=== PATIENT | female | born 1960 | race Caucasian/White ===

== ENCOUNTER 2018-07-21 17:29 | Emergency (ER) | payer BC ==
--- NOTE | 2018-07-21 20:57 | ED ---
General Adult HPI - General Chief complaint: Neuro Symptoms/Deficit Stated complaint: Numbness in L side Source: patient Mode of arrival: ambulatory Limitations: no limitations - History of Present Illness Initial comments: Dictation was produced using [employer] dictation software. please excuse any grammatical, word or spelling errors. Chief Complaint: Female with complaints of a neuropathic symptoms. History of Present Illness:-year-old female who has been evaluated for neuropathy. Patient states she's had neuropathy symptoms for approximately 3 weeks. She states that this started at her bilateral feet. States that now she has neuropathy symptoms of her hands. Patient states that over the last 2- 3 days she's been having similar symptoms on her lip and mouth. Patient has been worked up by her primary care doctor or multiple lab tests were obtained. She was evaluated by physical medicine rehab who performed EMG with no apparent results. Patient was scheduled to see Dr. Walsh however she reports that she cannot wait that long. The ROS documented in this emergency department record has been reviewed and confirmed by me. Those systems with pertinent positive or negative responses have been documented in the HPI. All other systems are other negative and/or noncontributory. . - Related Data Home Medications Medication Instructions Recorded Confirmed Aspirin [Adult Low Dose Aspirin EC] 81 mg PO DAILY 07/21/18 07/21/18 Atenolol [Tenormin] 50 mg PO BID 07/21/18 07/21/18 Baclofen 10 mg PO DAILY PRN 07/21/18 07/21/18 Cyanocobalamin (Vitamin B-12) 1,000 mcg PO DAILY 07/21/18 07/21/18 [Vitamin B-12] Ezetimibe 10 mg PO HS 07/21/18 07/21/18 Ibuprofen/Diphenhydramine HCl 1 tab PO HS PRN 07/21/18 07/21/18 [Advil Pm Liqui-Gels] Losartan Potassium 100 mg PO HS 07/21/18 07/21/18 Sertraline [Zoloft] 50 mg PO HS 07/21/18 07/21/18 Xanax (Unknown Dose) 1 tab PO DAILY PRN 07/21/18 07/21/18 amLODIPine [Norvasc] 5 mg PO HS 07/21/18 07/21/18 Allergies Allergy/AdvReac Type Severity Reaction Status Date / Time egg Allergy Nausea & Verified 07/21/18 19:22 Vomiting & Diarrhea erythromycin base Allergy Unknown Verified 07/21/18 19:22 Milk Containing Products Allergy Nausea & Verified 07/21/18 19:22 [Dairy] Vomiting & Diarrhea Review of Systems ROS Statement: Those systems with pertinent positive or pertinent negative responses have been documented in the HPI. ROS Other: All systems not noted in ROS Statement are negative. Past Medical History Past Medical History: Hypertension History of Any Multi-Drug Resistant Organisms: None Reported Past Surgical History: Appendectomy, Cholecystectomy Additional Past Surgical History / Comment(s): carpal tunnel survery x2 on right and x1 on left, D&C, uterine ablasion Past Psychological History: No Psychological Hx Reported Smoking Status: Never smoker Past Alcohol Use History: Occasional Past Drug Use History: None Reported General Exam - General Exam Comments Initial Comments: PHYSICAL EXAM: General Impression: Alert and oriented x3, not in acute distress HEENT: Normocephalic atraumatic, extra-ocular movements intact, pupils equal and reactive to light bilaterally, mucous membranes moist. Cardiovascular: Heart regular rate and rhythm, S1&S2 audible, no murmurs, rubs or gallops Chest: Lungs clear to auscultation bilaterally, no rhonchi, no wheeze, no rales Abdomen: Bowel sounds present, abdomen soft, non-tender, non-distended, no organomegaly Musculoskeletal: Pulses present and equal in all extremities, no peripheral edema Motor: Power 5/5 bilaterally, no focal deficits noted Neurological: CN II-XII grossly intact, no focal motor or sensory deficits noted Skin: Intact with no visualized rashes Psych: Normal affect and mood Limitations: no limitations Course Vital Signs 07/21/18 07/21/18 07/21/18 17:48 19:29 21:00 Temperature 98.1 F 97.3 F L 97.4 F L Pulse Rate 67 63 64 Respiratory 18 20 18 Rate Blood Pressure 156/56 166/96 139/116 O2 Sat by Pulse 96 96 98 Oximetry Medical Decision Making - Medical Decision Making ED course: 58-year-old female with clinical presentation consistent with neuropathy. Upon arrival are within acceptable limits. At this point I feel that there is no need to do any further workup. Patient's symptoms are consistent with stroke or other neurologic emergency. Discussed patient case with Dr. Walsh who is aware patient. He has her phone number. His office staff will contact patient for scheduling of neurology appointment. She understandable and agreeable to plan. Disposition Clinical Impression: Neuropathy Disposition: HOME SELF-CARE Instructions: Peripheral Neuropathy (ED) Is patient prescribed a controlled substance at d/c from ED?: No Referrals: Dafne Walsh MD [STAFF PHYSICIAN] - 1-2 days Time of Disposition: 20:57
[2018-07-21 21:01] VITALS: BP 139/116; PULSE 64; RESP 18; TEMP 97.4
== END 2018-07-21 21:09 | disposition home or self-care (01) ==
LOC: EC 17:29
DX: G62.9 Polyneuropathy, unspecified (principal); I10 Essential (primary) hypertension; Z79.82 Long term (current) use of aspirin; Z79.899 Other long term (current) drug therapy; Z88.1 Allergy status to other antibiotic agents; Z91.011 Allergy to milk products; Z91.012 Allergy to eggs
CPT/HCPCS: 99283

== ENCOUNTER → 2018-07-23 | Outpatient (CLI) | payer BC ==
[2018-07-23 19:05] LABS: C Reactive Protein <0.4 mg/dL (0.0-0.8)
[2018-07-23 19:11] LABS: Creatine Kinase 105 U/L (26-186)
[2018-07-23 20:33] LABS: Hemoglobin A1C 5.6 % (4.0-6.0)
== END ==
LOC: LABWHC1 12:49
PROVIDERS: ATTEND Psychiatry & Neurology Neurology
DX: G62.9 Polyneuropathy, unspecified (principal); R20.2 Paresthesia of skin
CPT/HCPCS: 36415; 82306; 82550; 83036; 85652; 86140

== ENCOUNTER → 2018-08-09 | Outpatient (CLI) | payer BC ==
--- NOTE | 2018-08-09 19:08 | MR ---
EXAMINATION TYPE: MR brain wo/w con DATE OF EXAM: 08/09/2018 COMPARISON: None HISTORY: Tingling and Numbness, paresthesia of skin TECHNIQUE: Multiplanar, multisequence images of the brain and brainstem is performed without and with IV contras t, utilizing 7.5 mL intravenous Gadavist . FINDINGS: Diffusion weighted images demonstrate no evidence of a recent infarct or other diffusion ab normality. There is no extra-axial fluid collection. There are scattered hyperintensities on inversi on recovery T2-weighted sequences within the deep, periventricular, sub and juxtacortical white matte r. There are greater than 50 lesions. Largest lesion measures approximately 7 to 8 mm in the right pa rietal lobe axial image 21 on the right, on the left approximately 7 to 8 mm in the left frontal lobe axial image 18. The ventricular system and cisternal spaces are normal in size and appearance. The brain volume is age appropriate. Midline structures demonstrate normal morphology. The craniocervical junction appears within normal limits. Post contrast images demonstrate no abnormal enhancement. The dural venous sinuses appear pa tent. The visualized sinuses are remarkable for inflammatory change in the ethmoid air cells, there i s inflammatory change in the right mastoids, and the globes are intact. IMPRESSION: Nonspecific white matter demyelination. Sinus disease, inflammatory change in the right m astoid air cells.
== END | disposition home or self-care (01) ==
LOC: RADMRIMAIN 16:20
PROVIDERS: ATTEND Psychiatry & Neurology Neurology
DX: G37.9 Demyelinating disease of central nervous system, unspecified (principal); R20.2 Paresthesia of skin
CPT/HCPCS: 82565; 70553; A9585

== ENCOUNTER → 2018-09-13 | Day surgery (SDC) | payer BC ==
[2018-09-10 08:50] VITALS: BMI 29.8
[~2018-09-13] MED LIST: IV FLUID CONTINUATION 1,000 ML IV ONE; LACTATED RINGERS 1,000 ML IV ONE; LIDOCAINE 1% 20 ML VIAL (10MG/ML) FOR IV START INTRADERMA ONE
[2018-09-13 08:29] VITALS: RESP 16; TEMP 96.7
--- NOTE | 2018-09-13 09:14 | P.PCN ---
Date of Procedure: 09/13/18 Description of Procedure: Procedure: Lumbar Puncture . Preoperative Diagnoses: rule out M.S Postoperative Diagnosis: rule out M.S Anesthesia: IV sedation with Versed and local Condition: stable. Complications: none. Description of the procedure: Patient was consented in the preoperative area we discussed the risks benefits and alternatives to the procedure. The patient was Brought the patient into the procedure room and she was placed in the prone position. The back was cleansed with iodine 3. Fluoroscopy was used to identify the pain lumbar level. At that point lidocaine 1% was used to anesthetize the skin, total of 5 mL was used. A 22 gauge spinal needle was advanced until spinal fluid was aspirated through the needle and a three - way stop cock. Opening pressure was low as CSF was not free flowing. CSF was obtained and sent off to laboratory for examination. Band-Aid was placed after the procedure the patient was instructed to lay flat for the next few hours. The patient was discharged from the PACU in stable condition.
[2018-09-13 09:55] LABS: T4, Free (Free Thyroxine) 0.92 ng/dL (0.78-2.19)
[2018-09-13 10:04] VITALS: BP 152/88; PULSE 61
[2018-09-13 10:22] LABS: Glucose,CSF 52 mg/dL (40-70); Total Protein,CSF 51 mg/dL (12-60)
--- NOTE | 2018-09-13 10:39 | FL ---
Fluoroscopy INDICATION: Pain FINDINGS: Fluoroscopy time: 4 seconds. Images obtained: 1. IMPRESSIONS: 1. Documentation of fluoroscopy.
[2018-09-13 11:54] LABS: Appearance,CSF Clear; CSF Tube Number 4
[2018-09-13 12:27] LABS: Nucleated Cells, CSF 1 u/L (0-5); Red Blood Cell,CSF 0 u/L (0-10)
[2018-09-13 17:18] LABS: Rheumatoid Factor 8 IU/mL (0-15)
[2018-09-13 19:25] LABS: Anti-DNA, DS unit <1.0 IU/mL; DNA Double-Stranded NEGATIVE (NEGATIVE); RNP <0.2 AI
[2018-09-14 10:53] LABS: VDRL, Qualitative CSF Nonreactive (Nonreactive)
[2018-09-14 13:34] LABS: APTT 47 Sec(s) (<43); APTT 1:1 Mix 44 Sec(s) (<43); DRVVT 1:1 Mix 40 Sec(s) (<44); Dilute Russell Viper Venom 47 Sec(s) (<44); Hexagonal Phase Neutralization Negative (Negative)
[2018-09-15 14:22] LABS: IgG/Albumin Index (CSF) 0.53 (0.00 - 0.77)
== END ==
LOC: ORPAIN 08:15
PROVIDERS: ATTEND Hospitalist
DX: R20.2 Paresthesia of skin (principal); Z88.1 Allergy status to other antibiotic agents; Z91.012 Allergy to eggs; Z91.040 Latex allergy status; Z91.011 Allergy to milk products
CPT/HCPCS: 86592 ×2; 86235 ×3; 84439; 88108; 84157; 82945; 82040; 82042; 82784; 83916; 83873; 84443; 84450; 84460; 85730; 86431; 85613; 89050; 86618; 86038; 86225; 87801; 62270; J2001; 85598; 85732

== ENCOUNTER → 2019-10-06 | Outpatient (CLI) | payer OTHER ==
--- NOTE | 2019-10-06 18:56 | XR ---
PROCEDURE: XR wrist complete RT - 4V DATE AND TIME: 10/06/2019 6:03 PM CLINICAL INDICATION: Pain after fall; S70.02XA S80.02XA S60.211A S60.221A TECHNIQUE: Department protocol COMPARISON: None FINDINGS: There is no fracture or malalignment. There are scattered changes of osteoarthritis. The soft tissues are unremarkable. IMPRESSION: NO ACUTE PROCESS.
--- NOTE | 2019-10-06 18:57 | XR ---
PROCEDURE: XR hand complete RT - 3V DATE AND TIME: 10/06/2019 6:03 PM CLINICAL INDICATION: Fall after injury; S70.02XA S80.02XA S60.211A S60.221A TECHNIQUE: Department protocol COMPARISON: None FINDINGS: There is no fracture or malalignment. There are scattered changes of osteoarthritis. The soft tissues are unremarkable. IMPRESSION: NO ACUTE PROCESS.
--- NOTE | 2019-10-06 19:01 | XR ---
PROCEDURE: XR Hip Complete LT - 2V DATE AND TIME: 10/06/2019 6:03 PM CLINICAL INDICATION: PHH; S70.02XA S80.02XA S60.211A S60.221A TECHNIQUE: Department protocol COMPARISON: None FINDINGS: There is no fracture or malalignment. The soft tissues are unremarkable. IMPRESSION: NO ACUTE PROCESS.
--- NOTE | 2019-10-06 19:02 | XR ---
PROCEDURE: XR knee complete LT - 3V DATE AND TIME: 10/06/2019 6:03 PM CLINICAL INDICATION: PHH; S70.02XA S80.02XA S60.211A S60.221A TECHNIQUE: Department protocol COMPARISON: None FINDINGS: There is no fracture or malalignment. The soft tissues are unremarkable. IMPRESSION: NO ACUTE PROCESS.
== END | disposition home or self-care (01) ==
LOC: RAD 17:33
PROVIDERS: ATTEND Emergency Medicine
DX: S70.02XA Contusion of left hip, initial encounter (principal); S80.02XA Contusion of left knee, initial encounter; S60.211A Contusion of right wrist, initial encounter; S60.221A Contusion of right hand, initial encounter
CPT/HCPCS: 73502